=== PATIENT | male | born 1980 | race Two or more races ===

== ENCOUNTER 2022-04-10 05:47 | Emergency (ER) | payer MEDICAID ==
[~2022-04-10] VITALS: Ht 167.6 cm; Wt 68.0 kg
--- NOTE | 2022-04-10 06:22 | NUR ---
Rectal temperature 98.4F
[2022-04-10] MEDS ORDERED: IBUPROFEN 600 MG TABLET PO ONE (06:30)
[2022-04-10] MEDS ORDERED: IBUPROFEN 600 MG TABLET ONE (06:40)
--- NOTE | 2022-04-10 06:47 | NUR ---
Patient able to swallow Motrin 600mg PO without difficulty. No coughing and no signs of distress noted.
--- NOTE | 2022-04-10 09:16 | NUR ---
PT WAS RE-EVALUATED BY DR STANLEY. PT WAS D/C'd TO HOME. D/C INSTRUCTIONS GIVEN TO THE PT BY DR STANLEY.
[2022-04-10 09:20] VITALS: BP 128/72
== END 2022-04-10 09:21 | disposition home or self-care (01) ==
LOC: ER 05:47
DX: T69.8XXA Other specified effects of reduced temperature, initial encounter (principal); R51.9 Headache, unspecified; Z59.00 Homelessness unspecified
CPT/HCPCS: A4663